=== PATIENT | male | born 1960 | race Caucasian/White ===

== ENCOUNTER 2018-10-12 00:36 | Inpatient (IN) | payer OTHER, SELFPAY ==
[2018-10-12] VITALS (10 sets, daily range): BP systolic 118–154; BP diastolic 74–100; PULSE 83–113; RESP 16–22; TEMP 36.4–36.8; O2SAT 93–97; BMI 33.2; BMI 34.9
--- NOTE | 2018-10-12 00:40 | ED.SOB ---
HPI - SOB/Dyspnea General Chief Complaint: Shortness of Breath/Dyspnea Stated Complaint: shortness of breath Time Seen by Provider: 10/12/18 00:39 Source: patient Mode of arrival: ambulatory Limitations: no limitations History of Present Illness patient is a 58-year-old male here for evaluation of 3-4 days of chest pressure and shortness of breath with exertion. He states that he 1st noticed the symptoms when he was on vacation in [place]. He noticed that he could not walk as far as normal without having to stop and take some deep breaths. He has had a pulmonary embolism in the past. Has been on warfarin the past. Is not currently on anticoagulation. He states that they never came up with a source of why he had the pulmonary embolism. States that he has had symptoms for the past 3 or 4 days. No fevers. Nonproductive cough. Just arrived back denied state prior to arrival here in the ER. Related Data Allergies Allergy/AdvReac Type Severity Reaction Status Date / Time No Known Drug Allergies Allergy Verified 10/12/18 02:50 Review of Systems Constitutional Denies fever(s) and Denies headache(s) ENT Ears, Nose, Mouth, and Throat: Denies vertigo and Denies headache(s) Cardiovascular Reports chest pain, Reports dyspnea and Reports dyspnea on exertion Respiratory Denies cough, Reports dyspnea, Reports dyspnea on exertion and Denies wheezing Gastrointestinal Gastrointestinal: Denies change in bowel habits Musculoskeletal Denies arthralgias Neurologic Denies vertigo and Denies headache(s) Hematologic/Lymphatic Comments: Not on anticoagulation Allergic/Immunologic Denies wheezing PFSH Medical History Pulmonary embolism on left (Acute) Surgical History No pertinent past surgical history (Acute) Social History Smoking Status: Never smoker Exam Initial Vital Signs Initial Vital Signs: Vital Signs Temperature 97.5 F L 10/12/18 00:53 Pulse Rate 95 H 10/12/18 00:53 Respiratory Rate 22 10/12/18 00:53 Blood Pressure 147/100 H 10/12/18 00:53 Pulse Oximetry 95 10/12/18 00:53 Const General: cooperative, healthy appearing, comfortable, well developed, well groomed and No acute distress Orientation: alert, awake and oriented x3 HENMT Head: normal to inspection and normocephalic Resp Effort & Inspection: normal respiratory effort Auscultation: clear to auscultation bilaterally Cardio Rate: regular rate Rhythm: regular rhythm Pulses: radial pulses present GI Inspection: non-distended Skin Lesions: no lesions Rashes: no rashes Neuro General: alert, awake and oriented x3 Extrem General: normal to inspection and capillary refill normal Psych Appearance: grossly normal and disheveled Course Orders Ordered: ED Orders 10/12/18 EKG-12 Lead Stat 10/12/18 00:52 XR chest 1V Stat EKG-12 Lead Stat 10/12/18 00:58 CT angio chest PE protocol Stat 10/12/18 01:04 B Type Natriuretic Peptide Stat Basic Metabolic Panel Stat Complete Blood Count AUTO DIFF Stat Troponin I Stat 10/12/18 02:15 PTT [Partial Thromboplastin Time] Q6H 10/12/18 05:00 Hemoglobin and Hematocrit DAILY 10/12/18 08:15 PTT [Partial Thromboplastin Time] Q6H 10/12/18 14:15 PTT [Partial Thromboplastin Time] Q6H 10/12/18 20:15 PTT [Partial Thromboplastin Time] Q6H 10/13/18 05:00 Hemoglobin and Hematocrit DAILY Heparin Sodium (Porcine) (Heparin) 0 unit IV Q6H PRN; Protocol PRN Reason: protocol Sodium Chloride (Normal Saline 0.9%) 1,000 mls @ 500 mls/hr IV BOLUS ONE Stop: 10/12/18 02:57 Last Admin: 10/12/18 01:09 Dose: 500 mls/hr Heparin Sodium/Dextrose (Heparin Drip) 25,000 unit in 500 mls @ 36.741 mls/hr IV CONT JAIMIE; Protocol Last Admin: 10/12/18 02:34 Dose: 18 units/kg/hr, 36.741 mls/hr Discontinued Medications Heparin Sodium (Porcine) (Heparin) 7,500 unit IV NOW ONE Stop: 10/12/18 02:15 Last Admin: 10/12/18 02:29 Dose: 7,500 unit Vital Signs - 8 hr 10/12/18 00:53 10/12/18 02:47 Temperature 97.5 F L Pulse Rate 95 H 95 H Respiratory Rate 22 21 Blood Pressure 147/100 H Blood Pressure [Left Arm] 126/89 Pulse Oximetry 95 94 MDM - SOB/Dyspnea Lab Data Attestation: I reviewed the patient's lab results. Result diagrams: 10/12/18 01:04 10/12/18 01:04 Lab Results 10/12/18 10/12/18 10/12/18 Range/Units 01:04 01:04 01:04 WBC 9.8 (4.5-11.0) X10^3/uL RBC 5.37 (4.5-5.9) X10^6/uL Hgb 16.7 (13.5-17.5) g/dL Hct 48.7 (41-53) % MCV 90.7 (80-100) fL MCH 31.1 (26-34) PG MCHC 34.3 (30-36) % RDW 13.8 (11.6-14.8) % Plt Count 172 (150-400) X10^3/uL Neut % (Auto) 68.4 (50-75) % Lymph % (Auto) 20.8 L (25-40) % [place] % (Auto) 8.6 (3-14) % Eos % (Auto) 1.7 L (2-4) % Baso % (Auto) 0.5 (0-2) % Neut # (Auto) 6700 H (9033-9233) /uL Sodium 138 (137-145) mmol/L Potassium 3.9 (3.4-5.1) mmol/L Chloride 105 (98-107) mmol/L Carbon Dioxide 19 L (22-32) mmol/L BUN 18 (9-20) mg/dL Creatinine 0.90 (0.66-1.25) mg/dL Estimated GFR > 60.0 (>60) mL/min BUN/Creatinine Ratio 20.0 (6-22) Glucose 178 H (70-100) mg/dL Calcium 8.9 (8.4-10.2) mg/dL Troponin I (0.01-0.034) ng/mL B-Natriuretic Peptide 186.0 H (<100) 10/12/18 Range/Units 01:04 WBC (4.5-11.0) X10^3/uL RBC (4.5-5.9) X10^6/uL Hgb (13.5-17.5) g/dL Hct (41-53) % MCV (80-100) fL MCH (26-34) PG MCHC (30-36) % RDW (11.6-14.8) % Plt Count (150-400) X10^3/uL Neut % (Auto) (50-75) % Lymph % (Auto) (25-40) % [place] % (Auto) (3-14) % Eos % (Auto) (2-4) % Baso % (Auto) (0-2) % Neut # (Auto) (9006-4156) /uL Sodium (137-145) mmol/L Potassium (3.4-5.1) mmol/L Chloride (98-107) mmol/L Carbon Dioxide (22-32) mmol/L BUN (9-20) mg/dL Creatinine (0.66-1.25) mg/dL Estimated GFR (>60) mL/min BUN/Creatinine Ratio (6-22) Glucose (70-100) mg/dL Calcium (8.4-10.2) mg/dL Troponin I 0.045 H (0.01-0.034) ng/mL B-Natriuretic Peptide (<100) Imaging Data CT scan - chest: Radiologist's impression: extensive bilateral pulmonary thromboembolic disease. Findings of associated right ventricular strain. Lingular and left lower lobe peripheral infiltrates, suspicious for developing pulmonary infarctions ECG Data Attestation: I personally reviewed and interpreted this ECG as follows: Prior ECG tracings: not available for review Interpretation: sinus rhythm ventricular rate of 91 Normal QRS normal QTC No ST T wave changes MDM Narrative Medical decision making narrative: Patient is not hypoxic. Not tachycardic. Not hypotensive. Does appear to have some right heart strain given his slightly elevated BNP and troponin. I do not feel like his troponin is the result of ACS. Patient was started on heparin here in the emergency department. I did discuss the case with pulmonology at [facility] who stated that the patient did not need to be transferred to the ICU. He stated that the patient did need an echo but did not need to see pulmonology in the acute setting. I discussed the case with Dr. Gracia will admit the patient here to the hospital. I discussed admission with the patient. He expressed understanding and agreement. Critical Care Time Critical Care Time: Yes Total Critical Care Time: 41 Attestation: The high probability of a clinically significant, sudden or life threatening deterioration of the Respiratory and cardiovascularsystem(s) required my full and direct attention, intervention and personal management. The aggregate critical care time was41 minutes. This time is in addition to time spent performing reported procedures but includes the following: [] Data Review and interpretation [] Patient assessment and monitoring of vital signs [] Documentation [] Medication orders and management coordination of care Discharge Plan Departure Patient Disposition: Admitted As Inpatient Clinical Impression: Pulmonary embolism
--- NOTE | 2018-10-12 00:52 | DI.RAD.S_ITS ---
PROCEDURE: XR CHEST 1V INDICATIONS: chest pain TECHNIQUE: One view of the chest was acquired. COMPARISON: [facility], CT, PE STUDY (CTA CHEST), 04/05/2015, 15:43. [facility], CR, CHEST 1 VIEW, 04/05/2015, 15:00. FINDINGS: Surgical changes and devices: None. Lungs and pleura: Left lower lobe infiltrate. No pleural effusions or pneumothorax. Mediastinum: Mediastinal contours appear normal. Heart size is normal. Bones and chest wall: No suspicious bony lesions. Overlying soft tissues appear unremarkable. IMPRESSION: Left lower lobe infiltrate suspicious for pulmonary infarct or pneumonia. Dictated by: Stan Washington M.D. on 10/12/2018 at 8:03 Approved by: Stan Washington M.D. on 10/12/2018 at 8:06
--- NOTE | 2018-10-12 00:58 | DI.CT.S_ITS ---
PROCEDURE: CT ANGIO CHEST PE PROTOCOL INDICATIONS: Chest pain, shortness of breath, tachycardia, prior saddle pulmonary embolism TECHNIQUE: After the administration of intravenous contrast, 2 mm thick sections acquired from the pulmonary apices to the posterior costophrenic angles. 3-dimensional maximum intensity projection (MIP) coronal and sagittal reformats were then acquired through the thorax. For radiation dose reduction, the following was used: automated exposure control, adjustment of mA and/or kV according to patient size. COMPARISON: [facility], , XR CHEST 1V, 10/12/2018, 0:58. FINDINGS: Image quality: Excellent. Pulmonary arteries: There are filling defects in the central pulmonary arteries involving the left and right main pulmonary arteries, as well as upper and lower lobe lobar, segmental and subsegmental arteries bilaterally, consistent with extensive acute pulmonary embolism. Pulmonary arteries are normal in size. Lungs and pleura: There are patchy air space opacities in left upper lobe, lingula and left lower lobe, suspicious for pulmonary infarct.. No pleural effusions or pneumothorax. Central and peripheral airways are patent. Mediastinum: Heart size is normal. Trace pericardial effusion. Shotty mediastinal lymph nodes are likely reactive. Thoracic aorta is normal in caliber and enhancement. Esophagus is normal in caliber. A tiny hiatal hernia is noted. Bones and chest wall: No suspicious bony lesions. Degenerative changes in thoracic spine. Ribs and thoracic spine appear intact throughout. Thyroid gland is diffusely enlarged. No axillary or supraclavicular adenopathy. Abdomen: Visualized upper abdominal solid organs appear normal in the early arterial phase of enhancement. There is hepatic fatty infiltration. IMPRESSION: 1. Extensive pulmonary embolism bilaterally. 2. Air space opacities in the left upper lobe, lingula and left lower lobe are consistent with pulmonary infarction or superimposed pneumonia. 3. Shotty mediastinal lymph nodes are likely reactive. 4. Thyromegaly. Please correlate with thyroid function tests. 5. Hepatic steatosis. 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 Dictated by: Stan Washington M.D. on 10/12/2018 at 7:43 Approved by: Stan Washington M.D. on 10/12/2018 at 7:54
[2018-10-12] MEDS: SODIUM CHLORIDE 0.9% 1,000 ML 500 ML IV (01:09)
[2018-10-12 01:18] LABS: Add Manual Diff / Slide Review NO; Basophils Percent Auto 0.5 % (0-2); Eosinophils Percent Auto 1.7 % (2-4); Hematocrit 48.7 % (41-53); Hemoglobin 16.7 g/dL (13.5-17.5); Lymphocytes Percent Auto 20.8 % (25-40); Mean Corpuscular HGB Conc 34.3 % (30-36); Mean Corpuscular Hemoglobin 31.1 PG (26-34); Mean Corpuscular Volume 90.7 fL (80-100); Monocytes Percent Auto 8.6 % (3-14); Neutrophils Absolute Auto 6700 /uL (3000-5900); Neutrophils Percent Auto 68.4 % (50-75); Platelet Count 172 X10^3/uL (150-400); Red Blood Cell Count 5.37 X10^6/uL (4.5-5.9); Red Cell Distribution Width 13.8 % (11.6-14.8); White Blood Cell Count 9.8 X10^3/uL (4.5-11.0)
[2018-10-12 01:25] LABS: Blood Urea Nitrogen 18 mg/dL (9-20); Calcium 8.9 mg/dL (8.4-10.2); Carbon Dioxide 19 mmol/L (22-32); Chloride 105 mmol/L (98-107); Estimated Glomerular Filt Rate > 60.0 mL/min (>60); Glucose 178 mg/dL (70-100); HEMOLYSIS 50 (0-50); Potassium 3.9 mmol/L (3.4-5.1); Sodium 138 mmol/L (137-145)
[2018-10-12 01:37] LABS: Troponin I 0.045 ng/mL (0.01-0.034)
[2018-10-12] MEDS: HEPARIN 5,000 UNIT/ML VIAL 7500 UNIT IV (02:29)
[2018-10-12] MEDS: HEPARIN DRIP 25,000 UNIT/500 ML IV.SOLN 36.741 UNIT IV (02:34)
[2018-10-12 04:15] LABS: PTT Partial Thromboplastin Tim 33 SECONDS (26.4-36.2)
--- NOTE | 2018-10-12 04:44 | PC.ADMIT ---
[email or web address] Admission Note: The patient,Marquez Ndiaye,58 y/o, was given written information regarding hospital policies, unit procedures and contact persons. Patient's smoking status: Never smoker. Vital Signs - 8 hr 10/12/18 00:53 10/12/18 02:47 10/12/18 03:08 Temperature 97.5 F L Pulse Rate 95 H 95 H 83 Respiratory Rate 22 21 22 Blood Pressure 147/100 H Blood Pressure [Left Arm] 126/89 118/83 Pulse Oximetry 95 94 95 10/12/18 04:08 10/12/18 04:11 Temperature 97.8 F Pulse Rate 86 92 H Respiratory Rate 22 18 Blood Pressure 128/74 139/84 Blood Pressure [Left Arm] Pulse Oximetry 95 93 Patient admitted to room 229 per stretcher from ER at 0358. Walked from stretcher to bed and was steady on feet. Is alert and oriented. Breath sounds CTA with RA sat of 93% but states he feels SOB with exertion. HRR and telemetry was SR. Denies nausea. BT present and abdomen is soft. Denies dysuria, frequency, urgency or incontinence. Independent with mobility. Has chronic numbness in toes of both feet. Skin in good condition except for some redness over buttocks area (just arrived from [place] via plane trip and then drove from [place] to ER). Heparin gtt is infusing. Denies any pain. Fall risk score is low but instructed to call for assistance if needed when getting out of bed. Instructed in use of call light and bed controls. Discussed meal service/ordering and bedside shift report. Declined to have valuables locked in safe.
[2018-10-12 08:51] LABS: Hematocrit 48.4 % (41-53); Hemoglobin 16.3 g/dL (13.5-17.5)
[2018-10-12 09:22] LABS: PTT Partial Thromboplastin Tim 91 SECONDS (26.4-36.2)
--- NOTE | 2018-10-12 10:17 | P.HP_ITS ---
History of Present Illness Date Patient Seen: 10/12/18 Time Patient Seen: 10:08 Chief complaint: shortness of breath Narrative: This is a very pleasant 58-year-old male with a past medical history significant for prior pulmonary embolism. Patient said that he was diagnosed with follow-up a pulmonary embolism but no DVT about 2 years ago. He remain on Coumadin for about a year. He was taken off this medications about 2 years ago He states that he has been doing well and was in his usual state of health when yesterday he started having some significant shortness of breath. This symptom or the same as he had with his prior event. He felt like he was having another PE and that was why he came to the hospital He stated that he just came back from a trip [place]. He denied any recent illness. No swelling to the lower extremities. No leg pain. No wheezing or coughing. His other complaint at this time Patient History Medical History Pulmonary embolism on left (Acute) Surgical History No pertinent past surgical history (Acute) Family & Social History Family History: Reviewed 10/12/18 by Paola Eduardo DO Social History: household members significant other Prior Living Arrangements Apartment/Condo Safety & Behavioral: Feels Safe in Current Yes Environment Been Physically Hurt or No Threatened By a Person Suicidal Ideation Description None Tobacco & Substance use: Smoking Status Never smoker alcohol intake current alcohol intake frequency a few times a week Substance Use Type does not use Meds Home Medications Medication Instructions Recorded Confirmed Type No Known Home Medications 10/12/18 10/12/18 History Allergies Allergy/AdvReac Type Severity Reaction Status Date / Time No Known Drug Allergies Allergy Verified 10/12/18 02:50 Review of Systems Review of Systems All systems reviewed & are unremarkable except as noted in HPI and below Exam Vital Signs (past 8 hours): - 10/12/18 02:47 10/12/18 03:08 10/12/18 04:08 Temperature Pulse Rate 95 H 83 86 Respiratory Rate 21 22 22 Blood Pressure 128/74 Blood Pressure [Left Arm] 126/89 118/83 Pulse Oximetry 94 95 95 10/12/18 04:11 Temperature 97.8 F Pulse Rate 92 H Respiratory Rate 18 Blood Pressure 139/84 Blood Pressure [Left Arm] Pulse Oximetry 93 Oxygen Delivery Method Room Air Narrative Exam Narrative: NO ACUTE DISTRESS. PATIENT IS ALERT ORIENTED X3. VITAL SIGNS STABLE HEAD ATRAUMATIC NORMOCEPHALIC NECK : SUPPLE WITHOUT ADENOPATHY NO CAROTID BRUITS EYE: EOMI, PERRLA, NORMAL CONJUNCTIVA; NO JAUNDICE CHEST: REGULAR RATE. NO RUBS. PMI IS NON DISPLACED. NO MURMURS; NORMAL S1- S2 PULMONARY: DECREASED BS OVER THE BASES. MILD BIBASILAR CRACKLES NOTED; NO INCREASED DULLNESS TO PERCUSSION ABDOMEN: SOFT. NONTENDER. NONDISTENDED. BOWEL SOUNDS ARE PRESENT IN ALL 4 QUADRANTS. NO MASS. EXTREMITIES: NO EDEMA.. NO CYANOSIS CLUBBING NOTED. NEURO: CRANIAL NERVES 2-12 GROSSLY INTACT. NO FOCAL NEUROLOGICAL DEFICIT NOTED. MSK: NORMAL RANGE OF MOTION FOR AGE. NO JOINT EFFUSION. SKIN: NORMAL FOR ETHNICITY; NO ECCHYMOSIS. NO LESION. GOOD TURGOR.; NO RASHES : NORMAL EXTERNAL GENITALIA. PSYCH : APPROPRIATE MOOD AND AFFECT. ALERT AWAKE ORIENTED X3 Objective Labs Result Diagrams: 10/12/18 08:20 10/12/18 01:04 Labs: Laboratory Results - last 24 hr 10/12/18 10/12/18 10/12/18 01:04 01:04 01:04 WBC 9.8 RBC 5.37 Hgb 16.7 Hct 48.7 MCV 90.7 MCH 31.1 MCHC 34.3 RDW 13.8 Plt Count 172 Neut % (Auto) 68.4 Lymph % (Auto) 20.8 L [place] % (Auto) 8.6 Eos % (Auto) 1.7 L Baso % (Auto) 0.5 Neut # (Auto) 6700 H APTT Sodium 138 Potassium 3.9 Chloride 105 Carbon Dioxide 19 L BUN 18 Creatinine 0.90 Estimated GFR > 60.0 BUN/Creatinine Ratio 20.0 Glucose 178 H Calcium 8.9 Troponin I B-Natriuretic Peptide 186.0 H 10/12/18 10/12/18 10/12/18 01:04 01:04 08:20 WBC RBC Hgb 16.3 Hct 48.4 MCV MCH MCHC RDW Plt Count Neut % (Auto) Lymph % (Auto) [place] % (Auto) Eos % (Auto) Baso % (Auto) Neut # (Auto) APTT 33 Sodium Potassium Chloride Carbon Dioxide BUN Creatinine Estimated GFR BUN/Creatinine Ratio Glucose Calcium Troponin I 0.045 H B-Natriuretic Peptide 10/12/18 08:20 WBC RBC Hgb Hct MCV MCH MCHC RDW Plt Count Neut % (Auto) Lymph % (Auto) [place] % (Auto) Eos % (Auto) Baso % (Auto) Neut # (Auto) APTT 91 H* D Sodium Potassium Chloride Carbon Dioxide BUN Creatinine Estimated GFR BUN/Creatinine Ratio Glucose Calcium Troponin I B-Natriuretic Peptide Assessment & Plan Plan: Assessment/Plan Narrative: Impression and plan Possible acute pulmonary embolism. Patient is on a heparin drip. This will be stopped. The patient will be started on a decreased as per his choice. Watch for sign of respiratory distress. Oxygen therapy to maintain oxygen saturation higher than 90 at all time. Continuous pulse ox as indicated. consult pulmonology as indicated as well. Because patient was already started on heparin, coagulable state workup will not be done. This can be done as outpatient once indicated with patient referred to Hematology by primary care if indicated; watch patient closely for bleeding while on eliquis. Fall precautions. Pulmonary infarct. This is due to the acute PE. Monitor for now. Patient is able to maintain proper oxygenation on room air. Consult pulmonology attending as indicated Mild pulmonary infiltrate. Likely secondary to acute pulmonary embolism. No sign of infectious process. Monitor for now ELEVATED CARDIAC ENZYMES; DUE TO CARDIAC STRAIN AND DEMAND ISCHEMIA LIKELY; NO ACS SUSPECTED. MONITOR FOR NOW HLD; CHECK LIPIDS TODAY. START ON STATIN THERAPY Fatty liver disease. We will check lipid panels. Patient denies EtOH abuse. Outpatient workup and management as indicated. Consider statin therapy Thyromegaly. Will check TSH and T4 level. Patient might need FNA; THIS CAN BE ORDERED OUTPATIENT BY HIS PRIMARY CARE OBESITY. LIFESTYLE CHANGES RECOMMENDED. OUTPATIENT MANAGEMENT Duration of stay should be between 48-72hours. Time spent 55 min Quality VTE Deep Vein Thrombosis/Pulmonary Embolism Present on Admission: Yes
[2018-10-12 11:37] LABS: Cholesterol 188 mg/dL (140-199); HDL Cholesterol 33 mg/dL (40-60); LDL Cholesterol Calculated 103 mg/dL (<100); Triglycerides 260 mg/dL (35-150)
[2018-10-12] MEDS: APIXABAN 5 MG TABLET 10 MG PO ×2 (14:07→20:12)
--- NOTE | 2018-10-12 16:05 | CM.DANOTE ---
Discharge Planning/Care Management DCP: assessment: case received, EMR reviewed and including initial curriculum development specialist assessment. Case discussed this morning in Team Rounds. Pt is a 58 year old male who admitted early this mornin to care of hospitalist team. PCP: Dr. Christy Gracia Payer: [facility]. DX and POC are in process. P: follow prn for d/c issues and options as these are identified. Will check in with pt tomorrow as more is known but at this time anticipate a return to home and clinic followup at d/c. CM Discharge Assessment Start: 10/12/18 16:03 Freq: Status: Active Protocol: Document 10/12/18 16:03 ITV (Rec: 10/12/18 16:04 ITV [email or web address]) Discharge Planning Assessment Advance Directives? No History Provided By Medical Record Prior Living Arrangements Apartment/Condo Household Members significant other Comment Jaclyn Jasso: [phone] Independent with ADL's Yes Is patient alert and oriented? Yes Comment pending Review Status In Process Next Review Type Continued Stay Review
[2018-10-12] MEDS: ATORVASTATIN 20 MG TABLET PO (20:11)
[2018-10-12 20:39] LABS: PTT Partial Thromboplastin Tim 35 SECONDS (26.4-36.2)
[2018-10-12] MEDS: SODIUM CHLORIDE 0.9% 1,000 ML 80 ML IV (23:02)
[2018-10-13 01:36] VITALS: BP 139/87; PULSE 98; RESP 16; TEMP 36.7; O2SAT 94
[2018-10-13 01:38] VITALS: O2SAT 93
--- NOTE | 2018-10-13 01:45 | PC.NURSE ---
Patient is alert and oriented. Breath sounds CTA with RA sat of 93%; denies SOB even with exertion. HRR and telemetry reading was SR. Denies nausea. BT present; abdomen is soft. Denies urinary problems. Independent with mobility. Chronic tingling/numbness toes bilateral feet. Fall risk score is low. Denies pain.
[2018-10-13 05:00] VITALS: BP 143/87; PULSE 99; RESP 18; TEMP 36.6; O2SAT 93
[2018-10-13 06:07] LABS: Hematocrit 49.3 % (41-53); Hemoglobin 16.6 g/dL (13.5-17.5)
[2018-10-13 06:35] LABS: PTT Partial Thromboplastin Tim 37 SECONDS (26.4-36.2)
[2018-10-13 07:00] VITALS: O2SAT 92
--- NOTE | 2018-10-13 08:33 | PM.DS.1 ---
History of Present Illness Chief complaint: shortness of breath Narrative: This is a very pleasant 58-year-old male with a past medical history significant for prior pulmonary embolism. Patient said that he was diagnosed with follow-up a pulmonary embolism but no DVT about 2 years ago. He remain on Coumadin for about a year. He was taken off this medications about 2 years ago He states that he has been doing well and was in his usual state of health when yesterday he started having some significant shortness of breath. This symptom or the same as he had with his prior event. He felt like he was having another PE and that was why he came to the hospital He stated that he just [place]. He denied any recent illness. No swelling to the lower extremities. No leg pain. No wheezing or coughing. His other complaint at this time Discharge Providers Date of admission: 10/12/18 03:18 Primary care physician: Dax Gracia MD Consults: 10/12/18 02:56 Consult to Physician Routine Comment: Consulting Provider: Dax Gracia Reason for consultation: admission Has provider been notified: Yes Discharge provider: Paola Eduardo DO Discharge Date: 10/13/18 Summary Discharge Diagnosis: ACUTE PE; DC ON ELIQUIS PER PATIENT PREFERENCES; RISK AND BENEBITS EXPALINED TO PT; QUESTIONS AND CONCERNS ADDRESSED POSS PULM INFARCT. NO S/S OF RESP DISTRESS; WILL PULM OUTPATIENT IF NEEDED ELEVATED CARDIAC ENZYMES; DUE TO CARDIAC STRAIN AND DEMAND ISCHEMIA LIKELY; NO ACS SUSPECTED. MONITOR FOR NOW HLD; DC ON STATIN/FENOFIBRATE/NIACIN AND FISH OIL FATTY LIVER DISEASE ; EXTENSIVE COUNSELING GIVEN; DC ON STATIN Thyromegaly. FURTHER W/U MANAGEMENT CAN BE ORDERED OUTPATIENT BY HIS PRIMARY CARE OBESITY. LIFESTYLE CHANGES RECOMMENDED. OUTPATIENT MANAGEMENT Hospital Course: - PATIENT WITH A HX OF PRIOR PE AND EXTENSIVE WORK UP - PRESENTED TO THE WITH S/S OF RESPIRATORY DIFF - CTA DIS SHOW PE WITH POSS PULM INFARCT - PATIENT ELECTED ELIQUIS LTACT - HE IS STABLE AND NOT BEEN REQ ANY OXYGEN THERAPY TO MAINTAIN PROPER SAT - HE IS ANXIOUS TO LEAVE AND WILL BE DC TO HOME TODAY ADDITIONAL MANAGEMENT PER OP PROVIDERS Status at Discharge Cognitive/behavioral status at discharge: STABLE TO HOME Functional status at discharge: independent ambulation Overall status at discharge: patient is back to baseline Time Spent with Patient Greater than 30 minutes Exam Vital Signs (past 8 hours): - 10/13/18 01:36 10/13/18 01:38 10/13/18 05:00 Temperature 98.0 F 97.8 F Pulse Rate 98 H 99 H Respiratory Rate 16 18 Blood Pressure 139/87 143/87 H Pulse Oximetry 94 93 93 Oxygen Delivery Method Room Air Narrative Exam Narrative: NO ACUTE DISTRESS. PATIENT IS ALERT ORIENTED X3. VITAL SIGNS STABLE HEAD ATRAUMATIC NORMOCEPHALIC NECK : SUPPLE WITHOUT ADENOPATHY EYE: EOMI, PERRLA, NORMAL CONJUNCTIVA CHEST: REGULAR RATE.. NO RUBS. PMI IS NON DISPLACED. NO MURMURS PULMONARY: DECREASED BS OVER THE BASES. MILD BIBASILAR CRACKLES NOTED; NO INCREASED DULLNESS TO PERCUSSION ABDOMEN: SOFT; NON TENDER; BS + IN ALL 4 QUAD EXTREMITIES:NO EDEMA.. NO CYANOSIS OR CLUBBING NOTED. NEURO: CRANIAL NERVES 2-12 GROSSLY INTACT. NO FOCAL NEUROLOGICAL DEFICIT NOTED. MSK: NORMAL RANGE OF MOTION FOR AGE. NO JOINT EFFUSION. SKIN: NORMAL FOR ETHNICITY; NO ECCHYMOSIS. NO LESION. GOOD TURGOR.; NORASHES : NORMAL EXTERNAL GENITALIA. PSYCH : APPROPRIATE MOOD AND AFFECT. ALERT AWAKE ORIENTED X3 Objective Labs Result Diagrams: 10/13/18 05:08 10/12/18 01:04 Labs: Laboratory Results - last 24 hr 10/12/18 10/12/18 10/12/18 08:20 08:20 20:20 Hgb 16.3 Hct 48.4 APTT 91 H* D 35 D Triglycerides Cholesterol LDL Cholesterol, Calc HDL Cholesterol TSH 10/12/18 10/12/18 10/13/18 Unknown Unknown 05:08 Hgb Hct APTT 37 H D Triglycerides 260 H Cholesterol 188 LDL Cholesterol, Calc 103 H HDL Cholesterol 33 L TSH 1.00 10/13/18 05:08 Hgb 16.6 Hct 49.3 APTT Triglycerides Cholesterol LDL Cholesterol, Calc HDL Cholesterol TSH Discharge Plan Discharge Plan Patient Disposition: Home Discharge comment: dc to home act as mary cardiac diet f/u with pcp 3-10 days Discharge Med Rec/Prescriptions Prescriptions: New apixaban [Eliquis] 5 mg Tablet 10 mg PO BID 6 Days Qty: 24 RF: 0 atorvastatin [Lipitor] 20 mg Tablet 40 mg PO BEDTIME Qty: 60 RF: 0 hydrocodone-acetaminophen 5-325 mg Tablet 1 tab PO Q4HR PRN (Reason: Pain, Moderate (4-6)) Qty: 15 RF: 0 niacin 500 mg Tablet Extended Release 24 Hr 500 mg PO DAILY Qty: 60 RF: 0 pantoprazole 20 mg Tablet,Delayed Release (Dr/Ec) 20 mg PO DAILY Qty: 60 RF: 0 fenofibrate nanocrystallized 48 mg Tablet 48 mg PO DAILY Qty: 60 RF: 0 omega-3 fatty acids-fish oil [Fish Oil] 340-1,000 mg Capsule 1,000 mg PO DAILY Qty: 60 RF: 0 apixaban [Eliquis] 5 mg tablet 5 mg PO BID Qty: 180 RF: 2 Follow up/Referrals: Dax Gracia MD [Primary Care Provider] - (follow up with your primary care provider after discharge) Provider Discharge Instructions Diet: Low-fat and Low-cholesterol Skin/Wound/Dressing Care Report to your healthcare provider any signs of infection, such as:: chills, fever, night sweats, increased pain, unusual drainage and unusual redness Visit Report/Discharge Packet Instructions: DI for Pulmonary Embolism, Pantoprazole, Apixaban Visit Report Forms: Stroke Signs & Symptoms Discharge Data Primary Care Provider: Dax Gracia Attending Provider: Dax Gracia Admit Date/Time: 10/12/18 03:18 Discharges patient from system. Discharge Date/Time: 10/13/18 11:45 Quality VTE Deep Vein Thrombosis/Pulmonary Embolism Present on Admission: Yes
[2018-10-13] MEDS: NIACIN 500 MG TAB ER PO (08:51)
[2018-10-13] MEDS: FENOFIBRATE 48 MG TABLET PO (08:51)
[2018-10-13] MEDS: PANTOPRAZOLE 20 MG TABLET PO (08:51)
[2018-10-13] MEDS: FISH OIL 1,000 MG CAPSULE 1000 MG PO (08:51)
[2018-10-13] MEDS: APIXABAN 5 MG TABLET 10 MG PO (08:51)
[2018-10-13 08:55] VITALS: BP 146/85; PULSE 93; RESP 24; TEMP 36.7; O2SAT 96
--- NOTE | 2018-10-13 08:59 | PC.NURSE ---
Karma states he feels great and denies any pain with deep inspiration. VSS. Color is pink, lungs clear thomas. o2 sat RA 92%. Skin is a bit diaphoretic. He is able to get up and amb. indep. in room. Karma anticipates going home later this PM.
--- NOTE | 2018-10-13 11:01 | CM.DPC ---
DCP: continued: Spoke this morning with hospitalist who noted he was going to ok pt for d/c but needed to find out first if he had coverage for the generic Eliquis. He requested that this DCPlanner follow up re the financial coverage pt has for this medication. Met with pt and his Jaclyn. They confirmed his pharmacy is [facility]. Called and spoke with pharmacist who ran the script. She noted that dose larger than 2.5 mg a day would require a prior authorization process, typically from the PCP. If pt pd for the medication as ordered (is for 6 days) cost would be approx $270). Pt and physician are updated as is PHILLY Gorman. Physician noted the lower dose would not be appropriate and if pt chose the coumadin he will have to stay in the hospital for 6 days. Left pt and discussing same and will follow prn.
--- NOTE | 2018-10-13 12:07 | PC.NURSE ---
Karma was disch. in stable condition to home accompanied by his . He verbalizes understanding of all teaching and disch. instructions, gael. in regards to new Rx for Eliquis.
== END 2018-10-13 11:45 | disposition home or self-care (01) | DRG 176 ==
LOC: ED 02:54 → AC 03:19
PROVIDERS: Hospitalist; Admitting Provider Internal Medicine; Emergency Provider Emergency Medicine; PCP Internal Medicine; Visit Provider Internal Medicine
DX: I26.99 Other pulmonary embolism without acute cor pulmonale (principal); I24.8 Other forms of acute ischemic heart disease; E78.5 Hyperlipidemia, unspecified
CPT/HCPCS: 36415; 71045; 71275; 80048; 80061; 82962; 83880; 84443; 84484; 85014; 85018; 85025; 85730; 93005; 93010; 96361; 96365; 96366; 96375; 99283; 99285; A9270; J1644; Q9967

== ENCOUNTER → 2019-01-05 13:38 | Outpatient (CLI) | payer OTHER, SELFPAY ==
[2018-10-12 04:02] VITALS: BMI 34.9
[2019-01-05 15:09] LABS: Cholesterol 279 mg/dL (140-199); HDL Cholesterol 43 mg/dL (40-60); LDL Cholesterol Calculated 170 mg/dL (<100); Triglycerides 328 mg/dL (35-150)
[2019-01-05 15:39] LABS: Prostate Specific Antigen Scrn 4.72 ng/mL (0.1-4.0)
== END ==
PROVIDERS: PCP Internal Medicine; Visit Provider Internal Medicine
DX: E66.9 Obesity, unspecified (principal); E78.2 Mixed hyperlipidemia; Z12.5 Encounter for screening for malignant neoplasm of prostate
CPT/HCPCS: 36415; 80061; G0103

== ENCOUNTER → 2019-01-12 10:35 | Outpatient (CLI) | payer OTHER, SELFPAY ==
[2018-10-12 04:02] VITALS: BMI 34.9
[2019-01-12 11:37] LABS: Alanine Aminotransferase 33 IU/L (21-72); Albumin 4.2 g/dL (3.5-5.0); Albumin Globulin Ratio 1.2 (1.0-2.8); Alkaline Phosphatase 62 U/L (38-126); Aspartate Aminotransferase 26 IU/L (17-59); Blood Urea Nitrogen 14 mg/dL (9-20); Calcium 8.9 mg/dL (8.4-10.2); Carbon Dioxide 23 mmol/L (22-32); Chloride 102 mmol/L (98-107); Cholesterol 250 mg/dL (140-199); Estimated Glomerular Filt Rate > 60.0 mL/min (>60); Globulin 3.4 g/dL (1.7-4.1); Glucose 123 mg/dL (70-100); HDL Cholesterol 37 mg/dL (40-60); HEMOLYSIS 19 (0-50); LDL Cholesterol Calculated 148 mg/dL (<100); Potassium 4.2 mmol/L (3.4-5.1); Sodium 136 mmol/L (137-145); Total Protein 7.6 g/dL (6.3-8.2); Triglycerides 325 mg/dL (35-150)
[2019-01-12 12:06] LABS: Prostate Specific Antigen Scrn 7.89 ng/mL (0.1-4.0)
== END ==
PROVIDERS: PCP Internal Medicine; Visit Provider Internal Medicine
DX: E78.2 Mixed hyperlipidemia (principal); E66.9 Obesity, unspecified
CPT/HCPCS: 36415; 80053; 80061; G0103

== ENCOUNTER → 2019-03-16 08:13 | Outpatient (CLI) | payer OTHER, SELFPAY ==
[2018-10-12 04:02] VITALS: BMI 34.9
[2019-03-16 09:23] LABS: Cholesterol 172 mg/dL (140-199); HDL Cholesterol 37 mg/dL (40-60); LDL Cholesterol Calculated 88 mg/dL (<100); Triglycerides 233 mg/dL (35-150)
[2019-03-16 09:56] LABS: Prostate Specific Antigen Scrn 0.867 ng/mL (0.1-4.0)
== END ==
PROVIDERS: PCP Internal Medicine; Visit Provider Internal Medicine
DX: E78.2 Mixed hyperlipidemia (principal); E66.9 Obesity, unspecified
CPT/HCPCS: 36415; 80061; G0103

== ENCOUNTER → 2020-01-11 10:11 | Outpatient (CLI) | payer OTHER, SELFPAY ==
[2018-10-12 04:02] VITALS: BMI 34.9
[2020-01-11 10:49] LABS: Alanine Aminotransferase 29 IU/L (<50); Albumin 4.2 g/dL (3.5-5.0); Albumin Globulin Ratio 1.4 (1.0-2.8); Alkaline Phosphatase 68 U/L (38-126); Aspartate Aminotransferase 30 IU/L (17-59); BUN Creatinine Ratio 21.4 (6-22); Bilirubin Total 0.8 mg/dL (0.2-1.3); Blood Urea Nitrogen 15 mg/dL (9-20); Calcium 9.2 mg/dL (8.4-10.2); Carbon Dioxide 25 mmol/L (22-32); Chloride 105 mmol/L (98-107); Cholesterol 188 mg/dL (140-199); Estimated Glomerular Filt Rate > 60.0 mL/min (>60); Globulin 3.1 g/dL (1.7-4.1); Glucose 139 mg/dL (80-110); HDL Cholesterol 34 mg/dL (40-60); HEMOLYSIS 22 (0-50); LDL Cholesterol Calculated 99 mg/dL (<100); Potassium 4.4 mmol/L (3.4-5.1); Sodium 138 mmol/L (137-145); Total Protein 7.3 g/dL (6.3-8.2); Triglycerides 275 mg/dL (35-150)
== END ==
PROVIDERS: PCP Internal Medicine; Referring Provider Internal Medicine; Visit Provider Internal Medicine
DX: I26.99 Other pulmonary embolism without acute cor pulmonale (principal); E78.2 Mixed hyperlipidemia
CPT/HCPCS: 36415; 80053; 80061

== ENCOUNTER → 2020-02-08 08:28 | Outpatient (CLI) | payer OTHER, SELFPAY ==
[2018-10-12 04:02] VITALS: BMI 34.9
[2020-02-08 10:31] LABS: Hemoglobin A1C% w Est Avg Glu 7.2 % (4.0-6.0)
== END ==
PROVIDERS: PCP Internal Medicine; Referring Provider Internal Medicine; Visit Provider Internal Medicine
DX: E11.9 Type 2 diabetes mellitus without complications (principal)
CPT/HCPCS: 36415; 83036

== ENCOUNTER → 2020-08-25 10:35 | Outpatient (CLI) | payer OTHER, SELFPAY ==
[2018-10-12 04:02] VITALS: BMI 34.9
[2020-08-25 11:25] LABS: BUN Creatinine Ratio 14.9 (6-22); Blood Urea Nitrogen 11 mg/dL (9-20); Calcium 8.9 mg/dL (8.4-10.2); Carbon Dioxide 30 mmol/L (22-32); Chloride 102 mmol/L (98-107); Estimated Glomerular Filt Rate > 60.0 mL/min (>60); Glucose 170 mg/dL (80-110); HEMOLYSIS 22 (0-50); Potassium 4.2 mmol/L (3.4-5.1); Sodium 136 mmol/L (137-145)
== END ==
PROVIDERS: PCP Internal Medicine; Referring Provider Internal Medicine; Visit Provider Internal Medicine
DX: R73.02 Impaired glucose tolerance (oral) (principal)
CPT/HCPCS: 36415; 80048

== ENCOUNTER → 2021-03-27 15:04 | Outpatient (CLI) | payer OTHER, SELFPAY ==
[2018-10-12 04:02] VITALS: BMI 34.9
[2021-03-27] MEDS: COVID-19 VACC, Ad26(JANSSEN)/PF 0.5 ML IM (15:09)
== END ==
PROVIDERS: PCP Internal Medicine; Visit Provider Internal Medicine
DX: Z23 Encounter for immunization (principal)
CPT/HCPCS: 0031A; 91303